=== PATIENT | male | born 1980 | race Caucasian/White ===

== ENCOUNTER 2020-09-30 08:50 | Emergency (ER) | payer OTHER ==
[~2020-09-30] VITALS: Ht 170.2 cm; Wt 64.4 kg
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
--- NOTE | 2020-09-30 08:57 | NUR ---
SEEN AND EXAMINED BY .
--- NOTE | 2020-09-30 09:33 | NUR ---
URINAL GIVEN BUT UNABLE TO PROVIDE URINE SPECIMEN THIS TIME.
--- NOTE | 2020-09-30 09:56 | NUR ---
COVID SPECIMEN OBTAINED AND SENT TO LAB.
[2020-09-30 10:07] LABS: BASOPHILS % (AUTO) 0.5 % (0.0-2.0); EOSINOPHILS % (AUTO) 1.2 % (0.0-6.0); HEMATOCRIT 40 % (39-51); HEMOGLOBIN 14.1 g/dL (13.5-17.5); LYMPHOCYTES # (AUTO) 1.9 /CMM (0.8-4.8); LYMPHOCYTES % (AUTO) 23.1 % (20.0-44.0); MEAN CORPUSCULAR HGB CONC 35 g/dl (31.0-36.0); MEAN CORPUSCULAR VOLUME 93 fL (80-96); MONOCYTES # (AUTO) 0.9 /CMM (0.1-1.30); MONOCYTES % (AUTO) 10.5 % (2.0-12.0); NEUTROPHILS # (AUTO) 5.3 /CMM (1.8-8.9); NEUTROPHILS % (AUTO) 64.7 % (43.0-81.0); PLATELET COUNT (AUTO) 282 /CMM (150-450); WHITE BLOOD COUNT (AUTO) 8.2 K/uL (4.3-11.0)
[2020-09-30 10:11] LABS: CALCIUM, SERUM 9.1 mg/dL (8.5-10.1); CARBON DIOXIDE 26 mmol/L (21-32); CHLORIDE 107 mmol/L (98-107); CREATININE 1.2 mg/dL (0.6-1.3); GLUCOSE 118 mg/dL (74-106); POTASSIUM 3.2 mmol/L (3.5-5.1); SODIUM SERUM 144 mmol/L (136-145); UREA NITROGEN, BLOOD 16 mg/dL (7-18)
[2020-09-30 10:17] LABS: ALANINE AMINOTRANSFERASE 29 U/L (12-78); ALBUMIN 3.5 g/dL (3.4-5.0); ALCOHOL, BLOOD < 3 mg/dL (0-0); ALKALINE PHOSPHATASE 77 U/L (46-116); ASPARTATE AMINOTRANSFERASE 19 U/L (15-37); BILIRUBIN,DIRECT 0.1 mg/dL (0.0-0.2); BILIRUBIN,TOTAL 0.3 mg/dL (0.2-1.0); TOTAL PROTEIN, SERUM 6.7 g/dL (6.4-8.2)
[2020-09-30 10:39] LABS: ACETAMINOPHEN 0 ug/ml (10-30)
--- NOTE | 2020-09-30 11:20 | NUR ---
LAB CALLED PT COVID RESULT NEGATIVE.
--- NOTE | 2020-09-30 14:19 | NUR ---
URINE SPECIMEN COLLECTED AND SENT TO LAB.
--- NOTE | 2020-09-30 16:29 | NUR ---
SW called weigher and crusher, Toni to assess pt. to possibly break the hold as pt. is oriented and denying SI.
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
--- NOTE | 2020-09-30 18:10 | NUR ---
Patient given written and verbal discharge instructions. Patient verbalizes understanding of instructions. Patient is ambulatory with steady gait. Refuses offer of fci placement. Patient given list of available shelters in surrounding area.
[2020-09-30 18:11] VITALS: BP 125/60
== END 2020-09-30 18:11 | disposition home or self-care (01) ==
LOC: ER 08:53
DX: F29 Unspecified psychosis not due to a substance or known physiological condition (principal); F20.9 Schizophrenia, unspecified; Z20.822 Contact with and (suspected) exposure to COVID-19; F31.9 Bipolar disorder, unspecified; F43.10 Post-traumatic stress disorder, unspecified; E87.6 Hypokalemia; Z59.0 Homelessness
CPT/HCPCS: 36415; 80048; 80076; 80299; 80307; 80320; 85025; 87426; 99284; C9803; G0480